=== PATIENT | male | born 1990 | race Caucasian/White ===

== ENCOUNTER 2019-02-03 15:00 | Emergency (ER) | payer OTHER ==
[2019-02-03 15:08] VITALS: TEMP 97.5
[2019-02-03] MEDS ORDERED: LORazepam 2 MG/ML INJ IV STA (15:36)
--- NOTE | 2019-02-03 15:36 | ED ---
Psych HPI - General Source: patient, RN notes reviewed, old records reviewed Mode of arrival: ambulatory Limitations: no limitations - History of Present Illness MD Complaint: altered mental status, other (patient appears cognizant, currently lucid) -: week(s) Associated Psychiatric Symptoms: racing thoughts, auditory hallucinations, visual hallucinations, delusions Quality: intermittent Improves With: none Worsens With: drug use Context: recent drug abuse Associated Symptoms: denies other symptoms Treatments Prior to Arrival: none <Braxton Kevin - Last Filed: 02/03/19 16:40> <Karthikeyan Cedillo - Last Filed: 02/03/19 21:24> - General Chief Complaint: Psychiatric Symptoms Stated Complaint: Mental Health Time Seen by Provider: 02/03/19 15:09 - History of Present Illness Initial Comments: this is a 28-year-old male here for evaluation. Patient believes she is ago but her psychiatric medications. He does have some history of depression family history of bipolar disease. Patient denying any alcohol abuse. He does use illicit drugs methamphetamine also takes Lexapro to states does help. Patient is having episodes of confusion was experiencing unreal or alternate reality. patient is denying homicidal or suicidal thoughts (Braxton Kevin) - Related Data Allergies Allergy/AdvReac Type Severity Reaction Status Date / Time No Known Allergies Allergy Verified 02/03/19 15:08 Review of Systems ROS Other: All systems not noted in ROS Statement are negative. <Braxton Kevin - Last Filed: 02/03/19 16:40> ROS Other: All systems not noted in ROS Statement are negative. <Karthikeyan Cedillo - Last Filed: 02/03/19 21:24> ROS Statement: Those systems with pertinent positive or pertinent negative responses have been documented in the HPI. Past Medical History Past Medical History: No Reported History History of Any Multi-Drug Resistant Organisms: None Reported Past Surgical History: No Surgical Hx Reported Past Psychological History: Depression Smoking Status: Current every day smoker Past Alcohol Use History: None Reported Past Drug Use History: Marijuana, Methamphetamine <Braxton Kevin - Last Filed: 02/03/19 16:40> General Exam Limitations: no limitations General appearance: alert, in no apparent distress Head exam: Present: atraumatic, normocephalic, normal inspection Eye exam: Present: normal appearance, PERRL, EOMI. Absent: scleral icterus, conjunctival injection, periorbital swelling ENT exam: Present: normal exam, mucous membranes moist Neck exam: Present: normal inspection. Absent: tenderness, meningismus, lymphadenopathy Respiratory exam: Present: normal lung sounds bilaterally. Absent: respiratory distress, wheezes, rales, rhonchi, stridor Cardiovascular Exam: Present: regular rate, normal rhythm, normal heart sounds. Absent: systolic murmur, diastolic murmur, rubs, gallop, clicks GI/Abdominal exam: Present: soft, normal bowel sounds. Absent: distended, tende rness, guarding, rebound, rigid Extremities exam: Present: normal inspection, full ROM, normal capillary refill. Absent: tenderness, pedal edema, joint swelling, calf tenderness Back exam: Present: normal inspection Neurological exam: Present: alert, oriented X3, CN II-XII intact Psychiatric exam: Present: normal affect, normal mood Skin exam: Present: warm, dry, intact, normal color. Absent: rash <Braxton Kevin - Last Filed: 02/03/19 16:40> Course <Braxton Kevin - Last Filed: 02/03/19 16:40> Vital Signs 02/03/19 15:01 Temperature 97.5 F L Pulse Rate 97 Respiratory 20 Rate Blood Pressure 120/67 O2 Sat by Pulse 100 Oximetry - Reevaluation(s) Reevaluation #1: 02/03/19 16:41 medical clear for psychiatric evaluation (Braxton Kevin) Medical Decision Making - Lab Data Result diagrams: 02/03/19 15:51 <Braxton Kevin - Last Filed: 02/03/19 16:40> - Lab Data Result diagrams: 02/03/19 15:51 02/03/19 15:51 <Karthikeyan Cedillo - Last Filed: 02/03/19 21:24> - Lab Data Lab Results 02/03/19 02/03/19 02/03/19 Range/Units 15:51 15:51 17:14 WBC 10.1 (3.8-10.6) k/uL RBC 5.20 (4.30-5.90) m/uL Hgb 16.0 (13.0-17.5) gm/dL Hct 46.4 (39.0-53.0) % MCV 89.3 (80.0-100.0) fL MCH 30.7 (25.0-35.0) pg MCHC 34.4 (31.0-37.0) g/dL RDW 12.0 (11.5-15.5) % Plt Count 287 (150-450) k/uL Neutrophils % 77 % Lymphocytes % 16 % Monocytes % 4 % Eosinophils % 1 % Basophils % 0 % Neutrophils # 7.8 H (1.3-7.7) k/uL Lymphocytes # 1.7 (1.0-4.8) k/uL Monocytes # 0.4 (0-1.0) k/uL Eosinophils # 0.1 (0-0.7) k/uL Basophils # 0.0 (0-0.2) k/uL Sodium 140 (137-145) mmol/L Potassium 3.5 (3.5-5.1) mmol/L Chloride 103 (98-107) mmol/L Carbon Dioxide 25 (22-30) mmol/L Anion Gap 12 mmol/L BUN 16 (9-20) mg/dL Creatinine 0.89 (0.66-1.25) mg/dL Est GFR (CKD-EPI)AfAm >90 (>60 ml/min/1.73 sqM) Est GFR (CKD-EPI)NonAf >90 (>60 ml/min/1.73 sqM) Glucose 102 H (74-99) mg/dL Calcium 10.3 H (8.4-10.2) mg/dL Urine Color Yellow Urine Appearance Clear (Clear) Urine pH 6.0 (5.0-8.0) Ur Specific [place] 1.010 (1.001-1.035) Urine Protein Negative (Negative) Urine Glucose (UA) Negative (Negative) Urine Ketones Trace H (Negative) Urine Blood Negative (Negative) Urine Nitrite Negative (Negative) Urine Bilirubin Negative (Negative) Urine Urobilinogen <2.0 (<2.0) mg/dL Ur Leukocyte Esterase Negative (Negative) Salicylates <1.0 mg/dL Urine Opiates Screen Not Detected (NotDetected) Ur Oxycodone Screen Not Detected (NotDetected) Urine Methadone Screen Not Detected (NotDetected) Ur Propoxyphene Screen Not Detected (NotDetected) Acetaminophen <10.0 ug/mL Ur Barbiturates Screen Not Detected (NotDetected) U Tricyclic Antidepress Not Detected (NotDetected) Ur Phencyclidine Scrn Not Detected (NotDetected) Ur Amphetamines Screen Detected H (NotDetected) U Methamphetamines Scrn Detected H (NotDetected) U Benzodiazepines Scrn Detected H (NotDetected) Urine Cocaine Screen Not Detected (NotDetected) U Marijuana (THC) Screen Detected H (NotDetected) Serum Alcohol <10 mg/dL Disposition <Braxton Kevin - Last Filed: 02/03/19 16:40> Is patient prescribed a controlled substance at d/c from ED?: No <Karthikeyan Cedillo - Last Filed: 02/03/19 21:24> Clinical Impression: Mood disorder, Substance abuse Disposition: HOME SELF-CARE Condition: Good Instructions (If sedation given, give patient instructions): Mood Disorders (ED) Referrals: Yobany Arriaza MD [Primary Care Provider] - 1-2 days
[2019-02-03] MEDS ORDERED: SODIUM CHLORIDE 0.9% 1,000 ML IV STA (15:37)
[2019-02-03 16:21] LABS: Basophils % (A) 0 %; Eosinophils # (A) 0.1 k/uL (0-0.7); Eosinophils % (A) 1 %; HCT 46.4 % (39.0-53.0); Lymphocytes # (A) 1.7 k/uL (1.0-4.8); Lymphocytes % (A) 16 %; MCH 30.7 pg (25.0-35.0); MCHC 34.4 g/dL (31.0-37.0); MCV 89.3 fL (80.0-100.0); Mean Platelet Volume 7.2; Monocytes # (A) 0.4 k/uL (0-1.0); Monocytes % (A) 4 %; Neutrophils # (A) 7.8 k/uL (1.3-7.7); Neutrophils % (A) 77 %; Platelet Count 287 k/uL (150-450); WBC 10.1 k/uL (3.8-10.6)
[2019-02-03 16:42] LABS: Acetaminophen <10.0 ug/mL; African American GFR (CKD) >90 (>60 ml/min/1.73 sqM); Alcohol <10 mg/dL; Anion Gap 12 mmol/L; Blood Urea Nitrogen 16 mg/dL (9-20); Calcium 10.3 mg/dL (8.4-10.2); Carbon Dioxide 25 mmol/L (22-30); Chloride 103 mmol/L (98-107); Glucose 102 mg/dL (74-99); Non-African American GFR(CKD) >90 (>60 ml/min/1.73 sqM); Potassium 3.5 mmol/L (3.5-5.1); Salicylate <1.0 mg/dL; Sodium 140 mmol/L (137-145)
[2019-02-03 17:41] LABS: Appearance,Urine Clear (Clear); Bilirubin,Urine Negative (Negative); Blood,Urine Negative (Negative); Color,Urine Yellow; Glucose,Urine (UA) Negative (Negative); Ketones,Urine Trace (Negative); Leukocyte Esterase,Urine Negative (Negative); Nitrite,Urine Negative (Negative); Protein,Urine Negative (Negative); Urobilinogen,Urine <2.0 mg/dL (<2.0)
[2019-02-03 17:55] LABS: Amphetamine Screen,Urine Detected (NotDetected); Barbiturate Screen,Urine Not Detected (NotDetected); Benzodiazepines Screen,Urine Detected (NotDetected); Cocaine Screen,Urine Not Detected (NotDetected); Methadone Screen, Urine Not Detected (NotDetected); Opiate Screen,Urine Not Detected (NotDetected); Oxycodone Screen, Urine Not Detected (NotDetected); Phencyclidine Screen,Urine Not Detected (NotDetected); Tricyclic Antidepressant,Urine Not Detected (NotDetected); Urn Cannabinoid Scrn Detected (NotDetected)
[2019-02-03] MEDS ORDERED: LORazepam 1 MG TAB PO STA (21:22)
[2019-02-03 21:53] VITALS: BP 125/79; PULSE 89; RESP 18
== END 2019-02-03 21:47 | disposition home or self-care (01) ==
LOC: EC 15:00
DX: F39 Unspecified mood [affective] disorder (principal); F19.10 Other psychoactive substance abuse, uncomplicated; F17.200 Nicotine dependence, unspecified, uncomplicated; Z86.59 Personal history of other mental and behavioral disorders; Z81.8 Family history of other mental and behavioral disorders
CPT/HCPCS: 99285; 96374; 96361; 82075; 36415; 80048; 85025; 81003; 80306; 83520; G0480 ×2; J2060; 80320; 80329